=== PATIENT | female | born 1940 | race Caucasian/White ===

== ENCOUNTER 2016-04-15 13:29 | Emergency (ER) | payer MEDICARE, OTHER ==
[~2016-04-15] VITALS: Ht 148.6 cm; Wt 59.2 kg
[~2016-04-15 13:29] MED LIST: ASPI-110 PO; ATOR20TA15 PO; CIPR-9 PO; GLYB2.5T3 PO; LEXA20TA PO; LOSA50TA PO; METF1000 PO; MULT1TAB96 PO; PANT20TA2 PO
[2016-04-15 13:46] VITALS: BP 169/72; PULSE 71; RESP 17; TEMP 98; O2SAT 95
--- NOTE | 2016-04-15 15:26 | PD ---
HPI Chief Complaint: Fall Time Seen by Provider: 15:22 Travel History International Travel<30 days: No Contact w/Intl Traveler<30days: No Traveled to known affect area: No History of Present Illness HPI 75-year-old female presents to the emergency room for evaluation of headache and neck pain after trip and fall 2 nights ago. Patient states she tripped in her bathroom and fell forward. She does not quite remember what she tripped on but denies syncope or loss of consciousness. Believes she landed on her knees and then struck her head on the floor. She has a right sided frontal headache for which she has been taking Aleve. States she just hasn't been feeling herself over the past 2 days. She reports nausea but no vomiting. Denies retrograde amnesia, altered mental status, confusion, and visual changes. She has bruising on bilateral knees but denies significant knee pain or difficulty walking. Denies back pain, upper or lower extremity paresthesias, saddle anesthesia, or loss of bowel or bladder control. Patient takes baby aspirin daily. PFSH Past Medical History Hx Anticoagulant Therapy: Yes (81MG ASA) Asthma: Yes Blood Disorders: No Anxiety: Yes Depression: Yes Cancer: No Cardiovascular Problems: Yes High Cholesterol: Yes Diabetes: Yes (ORAL MEDS) Diminished Hearing: No Endocrine: Yes Genitourinary: No Hypertension: Yes Immune Disorder: No Musculoskeletal: No Neurologic: No Psychiatric: Yes Respiratory: Yes (ASTHMA) Immunizations Current: Yes Menopausal: Yes Past Surgical History Abdominal Surgery: Yes (PART OF OVARY REMOVED) Other Surgery: Yes (BREAST BIOPSY X 2) Social History Alcohol Use: Yes (1-2 GLASSES WINE PER NIGHT) Tobacco Use: No Substance Use: No Allergies-Medications (Allergen,Severity, Reaction): Coded Allergies: Beta Blockers (Verified Allergy, Severe, PT FEELS LIKE CIRCULATION IS CUT OFF TO HER HEAD, 04/15/16) Penicillin (Verified Allergy, Severe, RASH, 04/15/16) Sulfa (Verified Allergy, Severe, Rash, 04/15/16) Reported Meds & Prescriptions Reported Meds & Active Scripts Active Reported Multivitamin Women 50+ (Multiple Vitamins W/ Minerals) 1 Tab Tab 1 Tab PO DAILY Pantoprazole (Pantoprazole Sodium) 20 Mg Tab 20 Mg PO DAILY Glyburide 2.5 Mg Tab 2.5 Mg PO DAILY Take with meals at the same time each day Metformin (Metformin HCl) 1,000 Mg Tab 1,000 Mg PO BIDPC With meals Losartan (Losartan Potassium) 50 Mg Tab 50 Mg PO BID Lexapro (Escitalopram Oxalate) 20 Mg Tab 20 Mg PO DAILY Atorvastatin (Atorvastatin Calcium) 20 Mg Tab 20 Mg PO HS Aspirin 81 (Aspirin) 81 Mg Tabdr 81 Mg PO DAILY Review of Systems Except as stated in HPI: all other systems reviewed are Neg Physical Exam Narrative GENERAL: Well-nourished, well-developed female in no acute distress. Afebrile. Ambulatory. SKIN: Warm and dry. Large area of ecchymosis around the right forehead and periorbital space. HEAD: Normocephalic. EYES: PERRL, EOMI, no discharge or injection. No scleral icterus. NECK: Supple, trachea midline. No JVD or lymphadenopathy. Tenderness to palpation of the midline cervical spine. GASTROINTESTINAL: Abdomen soft, non-tender, nondistended. MUSCULOSKELETAL: No cyanosis, or edema. BACK: Nontender without obvious deformity. No CVA tenderness. NEUROLOGICAL: Awake and alert. Cranial nerves II through XII intact. Motor and sensory grossly within normal limits. Five out of 5 muscle strength in all muscle groups. Normal speech. No pronator drift in upper or lower extremities. Data Data Last Documented VS Vital Signs Date Time Temp Pulse Resp B/P Pulse Ox O2 Delivery O2 Flow Rate FiO2 04/15/16 13:46 98.0 71 17 169/[address] Brain W/O Iv Contrast(Rout) (04/15/16 ) Ct Cerv Spine W/O Contrast (04/15/16 ) MDM Medical Decision Making Medical Screen Exam Complete: Yes Emergency Medical Condition: Yes Medical Record Reviewed: Yes Differential Diagnosis Fracture versus concussion versus intracranial hemorrhage versus headache Narrative Course 75-year-old female presents to the emergency room for evaluation of headache and neck pain after a trip and fall 2 days ago. Patient hit her head on the tile floor. Denies loss of consciousness. She has had persistent but mild headache since then with nausea but no vomiting. Denies retrograde amnesia, confusion, altered mental status, or changes in vision. Patient takes baby aspirin daily. She also reports reports bilateral pain to the paraspinous musculature of the cervical spine. No focal neurological deficits on exam. Neuro exam reassuring. CT of the head and neck are negative. Patient likely has cervical strain with concussion. Told to follow up with her primary care physician or return to the emergency room for worsening symptoms. She understands and agrees to plan. Diagnosis Primary Impression: Concussion Qualified Code: S06.0X0A - Concussion, without loss of consciousness, initial encounter Additional Impression: Cervical strain, acute Qualified Code: S16.1XXA - Cervical strain, acute, initial encounter Referrals: Primary Care Physician Patient Instructions: Concussion (ED), General Instructions Additional Instructions: Rest and drink plenty of fluids. Do not play any active sports or activities that may cause you to hit your head again. Take Tylenol with food as directed, as needed for pain. Apply ice to the affected area for 20 minutes at a time, as needed for pain and swelling. Follow-up with a primary care physician. Return to the emergency room for worsening symptoms. Disposition: 01 DISCHARGE HOME Condition: Stable Sheba Feldman Apr 15, 2016 15:26 Sheba Feldman Apr 15, 2016 15:26
--- NOTE | 2016-04-15 16:52 | RADHPO ---
EXAM DATE/TIME: 04/15/2016 15:42 [facility] COMPARISON: No previous studies available for comparison. INDICATIONS : Fall. Right frontal head trauma. RADIATION DOSE: 62.84 CTDIvol (mGy) MEDICAL HISTORY : Hypertension. Diabetes. SURGICAL HISTORY : None. ENCOUNTER: Initial ACUITY: 2 days PAIN SCALE: 6/10 LOCATION: Right frontal TECHNIQUE: Multiple contiguous axial images were obtained of the head. Using automated exposure control and adj ustment of the mA and/or kV according to patient size, radiation dose was kept as low as reasonably a chievable to obtain optimal diagnostic quality images. FINDINGS: CEREBRUM: The ventricles are normal for age. No evidence of midline shift, mass lesion, hemorrhage or acute in farction. No extra-axial fluid collections are seen. POSTERIOR FOSSA: The cerebellum and brainstem are intact. The 4th ventricle is midline. The cerebellopontine angle i s unremarkable. EXTRACRANIAL: The visualized portion of the orbits is intact. SKULL: The calvaria is intact. No evidence of skull fracture. Minimal superficial soft tissue swelling in t he frontal region for head CONCLUSION: Intracranially negative Rufus Saunders MD on April 15, 2016 at 16:49 Board Certified Radiologist. This report was verified electronically.
--- NOTE | 2016-04-15 16:54 | RADHPO ---
EXAM DATE/TIME: 04/15/2016 15:42 [facility] COMPARISON: No previous studies available for comparison. INDICATIONS : Fall. Right sided neck trauma. RADIATION DOSE: 25.44 CTDIvol (mGy) MEDICAL HISTORY : Hypertension. Diabetes. SURGICAL HISTORY : None. ENCOUNTER: Initial ACUITY: 2 days PAIN SCALE: 6/10 LOCATION: neck TECHNIQUE: Volumetric scanning of the cervical spine was performed. Multiplanar reconstructions in the sagittal, coronal and oblique axial planes were performed. Using automated exposure control and adjustment o f the mA and/or kV according to patient size, radiation dose was kept as low as reasonably achievable to obtain optimal diagnostic quality images. FINDINGS: VERTEBRAE: Normal vertebral body height. ALIGNMENT: No evidence of subluxation. C2-C3: The bony spinal canal is normal in size. No evidence of disc bulge or herniation. The neural forami na are bilaterally patent. C3-C4: The bony spinal canal is normal in size. No evidence of disc bulge or herniation. The neural forami na are bilaterally patent. C4-C5: The bony spinal canal is normal in size. No evidence of disc bulge or herniation. The neural forami na are bilaterally patent. C5-C6: The bony spinal canal is normal in size. No evidence of disc bulge or herniation. The neural forami na are bilaterally patent. C6-C7: The bony spinal canal is normal in size. No evidence of disc bulge or herniation. The neural forami na are bilaterally patent. C7-T1: The bony spinal canal is normal in size. No evidence of disc bulge or herniation. The neural forami na are bilaterally patent. CONCLUSION: Normal examination. Rufus Saunders MD on April 15, 2016 at 16:51 Board Certified Radiologist. This report was verified electronically.
== END 2016-04-15 17:17 | disposition home or self-care (01) ==
LOC: PHED 13:29 → PHEFT 17:17
DX: S06.0X0A Concussion without loss of consciousness, initial encounter (principal); S16.1XXA Strain of muscle, fascia and tendon at neck level, initial encounter; S80.01XA Contusion of right knee, initial encounter; S80.02XA Contusion of left knee, initial encounter; W01.0XXA Fall on same level from slipping, tripping and stumbling without subsequent striking against object, initial encounter; Y92.002 Bathroom of unspecified non-institutional (private) residence as the place of occurrence of the external cause
CPT/HCPCS: 70450; 72125